=== PATIENT | male | born 1960 ===

== ENCOUNTER 2021-02-19 08:48 | Day surgery (SDC) | payer OTHER ==
[~2021-02-19 08:48] MED LIST: ENALAPRIL MALEA10 MG PO; OMEPRAZOLE40 MG PO; SIMVASTATIN5 MG PO
[2021-02-19] MEDS ORDERED: PERCOCET 10-321 EACH PO (13:15)
== END 2021-02-19 19:35 | disposition home or self-care (01) ==
LOC: CIR.AMB 08:48
PROVIDERS: ATTEND Surgery
DX: N52.01 Erectile dysfunction due to arterial insufficiency (principal); Z20.822 Contact with and (suspected) exposure to COVID-19
CPT/HCPCS: 54405; C1813